=== PATIENT | male | born 1970 | race African-American/Black ===

== ENCOUNTER 2017-09-08 14:27 | Emergency (ER) | payer OTHER ==
[~2017-09-08] VITALS: Ht 170.2 cm; Wt 65.8 kg
[~2017-09-08 14:27] MED LIST: MOBIC15 MG PO
[2017-09-08 14:30] VITALS: BP 129/82
[2017-09-08] MEDS ORDERED: TRAMADOL 50 MG50 MG PO (14:50)
[2017-09-08] MEDS ORDERED: HYDROCODONE-AP1 EAC6 PO (14:56)
== END 2017-09-08 15:12 | disposition home or self-care (01) ==
LOC: ER 14:27
DX: S39.82XA Other specified injuries of lower back, initial encounter (principal); W22.01XA Walked into wall, initial encounter; Y93.89 Activity, other specified; Y92.89 Other specified places as the place of occurrence of the external cause; Y99.8 Other external cause status

== ENCOUNTER 2017-12-27 18:30 | Emergency (ER) | payer BC ==
[~2017-12-27] VITALS: Ht 170.2 cm; Wt 66.7 kg
[~2017-12-27 18:30] MED LIST changes: +HYDROCODONE-AP1 EAC6 PO; +TRAMADOL 50 MG50 MG PO
[2017-12-27 18:51] VITALS: BP 115/63
[2017-12-27] MEDS ORDERED: NAPROSYN500 MG PO (18:54)
[2017-12-27] MEDS ORDERED: AMITRIPTYLINE H25 M2 PO (18:54)
[2017-12-27] MEDS ORDERED: TRIPLE ANTIBI28.4 G1 TOP (19:16)
== END 2017-12-27 19:31 | disposition home or self-care (01) ==
LOC: ER 18:30
DX: R23.4 Changes in skin texture (principal)